=== PATIENT | male | born 1955 | race Caucasian/White ===

== ENCOUNTER 2017-03-16 03:45 | Inpatient (IN) | payer BC, MEDICARE ==
[~2017-03-16] VITALS: Ht 177.8 cm; Wt 119.8 kg
[2017-03-16] VITALS (8 sets, daily range): BP systolic 145–189; BP diastolic 86–124
[2017-03-16] MEDS ORDERED: SERT100T5 PO (04:13)
[2017-03-16] MEDS ORDERED: HYDR25TA6 PO (04:13)
[2017-03-16] MEDS ORDERED: TRAZ50TA18 PO (04:13)
[2017-03-16] MEDS ORDERED: DOXA8TAB63 PO (04:13)
[2017-03-16] MEDS ORDERED: METO50TA82 PO (04:13)
[2017-03-16] MEDS ORDERED: IBUP-1222 PO (04:13)
[2017-03-16] MEDS ORDERED: ONDANSETRON 2MG/ML, 2ML IVPush ONE (04:30)
[2017-03-16] MEDS ORDERED: ONDANSETRON 2MG/ML, 2ML ONE (04:33)
[2017-03-16] MEDS ORDERED: MORPHINE SULFATE 4 MG/ML, 1ML ONE ×2 (04:33→05:05)
[2017-03-16] MEDS: MORPHINE SULFATE 4 MG/ML, 1ML IVPush PRN ×2 (04:37→05:08)
[2017-03-16] MEDS ORDERED: OMNIPAQUE 350 MG/ML, 100ML BOTTLE ONE (04:37)
[2017-03-16] MEDS: SODIUM CHLORIDE 0.9% 1,000 ML IV ONE ×2 (05:12→05:46)
[2017-03-16 05:17] LABS: BLOOD UREA NITROGEN 13 mg/dL (7-18)
[2017-03-16 05:20] LABS: IS PT STATUS REG ER OR PRE ER? YES
[2017-03-16] MEDS ORDERED: ONDANSETRON 2MG/ML, 2ML IVPush PRN ×2 (05:30→06:00)
[2017-03-16] MEDS ORDERED: SODIUM CHLORIDE 0.9% 1,000ML IVBOLUS ONE (05:30)
[2017-03-16] MEDS ORDERED: MORPHINE SULFATE 4 MG/ML, 1ML IVPush PRN (05:30)
[2017-03-16] MEDS ORDERED: NITROGLYCERIN 0.4 MG BOTTLE (25 TABS) SL PRN (06:00)
[2017-03-16] MEDS ORDERED: POLYETHYLENE GLYCOL 17 GM PACKET PO PRN (06:00)
[2017-03-16] MEDS ORDERED: ACETAMINOPHEN 325 MG TABLET PO PRN (06:00)
[2017-03-16] MEDS ORDERED: GUAIFENESIN/DM 200-20MG, 10ML UDC PO PRN (06:00)
[2017-03-16] MEDS ORDERED: DOCUSATE 100 MG CAPSULE PO PRN (06:00)
[2017-03-16] MEDS ORDERED: BISACODYL 10 MG SUPP PR PRN (06:00)
[2017-03-16] MEDS ORDERED: POTASSIUM CHLORIDE 20 MEQ TAB.ER.PRT PO ONE (06:00)
[2017-03-16] MEDS ORDERED: POTASSIUM CHLORIDE 20 MEQ TAB.ER.PRT ONE (06:03)
[2017-03-16] MEDS ORDERED: NICOTINE 14MG/24 HR PATCH.TD24 ONE (06:03)
[2017-03-16] MEDS: NICOTINE 14MG/24 HR PATCH.TD24 TD SCH (06:11)
[2017-03-16] MEDS ORDERED: LORazepam 2 MG/ML, 1ML ONE (07:08)
[2017-03-16] MEDS: LORazepam 2 MG/ML, 1ML IVPush PRN ×2 (07:15→14:17)
[2017-03-16] MEDS ORDERED: LIDOCAINE 1%, 20ML ONE (08:34)
[2017-03-16] MEDS ORDERED: SODIUM BICARBONATE 4.2%, 5ML ONE (08:34)
[2017-03-16] MEDS ORDERED: METOPROLOL TARTRATE 50 MG TABLET PO SCH (09:00)
[2017-03-16] MEDS: CYANOCOBALAMIN 1,000 MCG TABLET PO SCH (09:59)
[2017-03-16] MEDS: MULTIVITAMIN 1 TABLET PO SCH (09:59)
[2017-03-16] MEDS: FOLIC ACID 1 MG TABLET PO SCH (09:59)
[2017-03-16] MEDS: THIAMINE 100MG TABLET PO SCH (09:59)
[2017-03-16] MEDS: SERTRALINE 100MG TABLET PO SCH (10:00)
[2017-03-16] MEDS: HYDROCHLOROTHIAZIDE 25 MG TABLET PO SCH (10:00)
[2017-03-16 13:36] LABS: IS PT STATUS REG ER OR PRE ER? NO
[2017-03-16] MEDS ORDERED: ENALAPRILAT 1.25 MG/ML, 2ML IV PRN (14:30)
[2017-03-16] MEDS ORDERED: POTASSIUM CHLORIDE 40 MEQ in SODIUM CHLORIDE 0.9% 500 ML IV ONE (15:30)
[2017-03-16] MEDS ORDERED: MAGNESIUM SULFATE PMX 2GM/50ML 50 ML IV ONE (16:00)
[2017-03-16] MEDS: OxyconTIN ER 10 MG TAB.ER PO SCH (16:03)
[2017-03-16 17:04] LABS: PATH.CAST-FLAG NOT PRESENT; SPERM-FLAG NOT PRESENT; SRC-FLAG NOT PRESENT; XTAL-FLAG NOT PRESENT; YLC-FLAG NOT PRESENT
[2017-03-16 17:35] LABS: IS PT STATUS REG ER OR PRE ER? NO
[2017-03-16] MEDS: ALBUTEROL/IPRATROPIUM 2.5MG/0.5MG, 3 ML HHN SCH (18:00)
[2017-03-16] MEDS: DOXAZOSIN 2MG TABLET PO SCH (21:09)
[2017-03-16] MEDS: METOPROLOL TARTRATE 50 MG TABLET PO SCH (21:10)
[2017-03-16] MEDS: morphine SULFATE 10 MG/ML, 1ML IVPush PRN (21:10)
[2017-03-16] MEDS: HYDROcodone/APAP 5/325 TABLET PO PRN (23:56)
[2017-03-17 00:35] VITALS: BP 129/86
[2017-03-17] MEDS: LORazepam 2 MG/ML, 1ML IVPush PRN (02:36)
[2017-03-17] MEDS: NICOTINE 14MG/24 HR PATCH.TD24 TD SCH (05:39)
[2017-03-17] MEDS: OxyconTIN ER 10 MG TAB.ER PO SCH ×2 (05:39→15:39)
[2017-03-17 06:05] LABS: ASPARTATE AMINO TRANSFERASE 44 U/L (15-37); BLOOD UREA NITROGEN 15 mg/dL (7-18)
[2017-03-17] MEDS: morphine SULFATE 10 MG/ML, 1ML IVPush PRN ×3 (07:22→20:43)
[2017-03-17 07:45] VITALS: BP 148/88
[2017-03-17] MEDS: SERTRALINE 100MG TABLET PO SCH (09:00)
[2017-03-17] MEDS: CYANOCOBALAMIN 1,000 MCG TABLET PO SCH (09:14)
[2017-03-17] MEDS: HYDROCHLOROTHIAZIDE 25 MG TABLET PO SCH (09:14)
[2017-03-17] MEDS: THIAMINE 100MG TABLET PO SCH (09:14)
[2017-03-17] MEDS: METOPROLOL TARTRATE 50 MG TABLET PO SCH ×2 (09:14→20:45)
[2017-03-17] MEDS: FOLIC ACID 1 MG TABLET PO SCH (09:14)
[2017-03-17] MEDS: MULTIVITAMIN 1 TABLET PO SCH (09:14)
[2017-03-17] MEDS: ALBUTEROL/IPRATROPIUM 2.5MG/0.5MG, 3 ML HHN SCH ×3 (09:34→16:50)
[2017-03-17] MEDS: CEFTRIAXONE PMX 1GM/50ML 50 ML IV SCH (11:58)
[2017-03-17] MEDS: DOXYCYCLINE 100 MG in DEXTROSE 5% 250 ML IV SCH ×2 (11:58→20:59)
[2017-03-17] MEDS: HYDROcodone/APAP 5/325 TABLET PO PRN (13:26)
[2017-03-17 14:05] VITALS: BP 129/92
[2017-03-17] MEDS ORDERED: ALBUTEROL/IPRATROPIUM 2.5MG/0.5MG, 3 ML NPPB PRN (17:00)
[2017-03-17] MEDS: ALBUTEROL/IPRATROPIUM 2.5MG/0.5MG, 3 ML NPPB SCH (19:33)
[2017-03-17 19:43] VITALS: BP 149/83
[2017-03-17 20:38] VITALS: BP 151/81
[2017-03-17] MEDS: DOXAZOSIN 2MG TABLET PO SCH (20:45)
[2017-03-18] MEDS: TRAZODONE 50MG TABLET PO PRN (00:35)
[2017-03-18 01:22] VITALS: BP 117/76
[2017-03-18] MEDS: OxyconTIN ER 10 MG TAB.ER PO SCH (05:33)
[2017-03-18] MEDS: NICOTINE 14MG/24 HR PATCH.TD24 TD SCH (05:33)
[2017-03-18 05:41] LABS: BLOOD UREA NITROGEN 11 mg/dL (7-18)
[2017-03-18] MEDS: morphine SULFATE 10 MG/ML, 1ML IVPush PRN ×4 (06:36→23:12)
[2017-03-18] MEDS: ALBUTEROL/IPRATROPIUM 2.5MG/0.5MG, 3 ML NPPB SCH ×4 (06:50→18:44)
[2017-03-18 08:11] VITALS: BP 139/94
[2017-03-18] MEDS ORDERED: MAGNESIUM SULFATE PMX 2GM/50ML 50 ML IV ONE ×2 (08:30→12:00)
[2017-03-18] MEDS: THIAMINE 100MG TABLET PO SCH (10:12)
[2017-03-18] MEDS: SERTRALINE 100MG TABLET PO SCH (10:12)
[2017-03-18] MEDS: CYANOCOBALAMIN 1,000 MCG TABLET PO SCH (10:12)
[2017-03-18] MEDS: FOLIC ACID 1 MG TABLET PO SCH (10:12)
[2017-03-18] MEDS: DOXYCYCLINE 100 MG in DEXTROSE 5% 250 ML IV SCH ×2 (10:12→21:53)
[2017-03-18] MEDS: HYDROCHLOROTHIAZIDE 25 MG TABLET PO SCH (10:13)
[2017-03-18] MEDS: METOPROLOL TARTRATE 50 MG TABLET PO SCH ×2 (10:13→21:51)
[2017-03-18] MEDS: MULTIVITAMIN 1 TABLET PO SCH (10:13)
[2017-03-18] MEDS: HYDROcodone/APAP 5/325 TABLET PO PRN ×2 (10:14→21:52)
[2017-03-18] MEDS: CEFTRIAXONE PMX 1GM/50ML 50 ML IV SCH (14:20)
[2017-03-18 14:58] VITALS: BP 142/87
[2017-03-18] MEDS: OxyconTIN ER 15 MG TAB.ER PO SCH (15:48)
[2017-03-18 19:24] VITALS: BP 130/90
[2017-03-18] MEDS: DOXAZOSIN 2MG TABLET PO SCH (21:51)
[2017-03-19 03:47] VITALS: BP 134/86
[2017-03-19] MEDS: OxyconTIN ER 15 MG TAB.ER PO SCH ×2 (03:54→15:24)
[2017-03-19] MEDS: NICOTINE 14MG/24 HR PATCH.TD24 TD SCH (05:42)
[2017-03-19] MEDS: morphine SULFATE 10 MG/ML, 1ML IVPush PRN ×4 (05:42→22:43)
[2017-03-19] MEDS: HYDROCHLOROTHIAZIDE 25 MG TABLET PO SCH (07:53)
[2017-03-19] MEDS: FOLIC ACID 1 MG TABLET PO SCH (07:53)
[2017-03-19] MEDS: CYANOCOBALAMIN 1,000 MCG TABLET PO SCH (07:53)
[2017-03-19] MEDS: MAGNESIUM CHLORIDE 64 MG TABLET.DR PO SCH (07:54)
[2017-03-19] MEDS: THIAMINE 100MG TABLET PO SCH (07:54)
[2017-03-19] MEDS: METOPROLOL TARTRATE 50 MG TABLET PO SCH ×2 (07:54→19:34)
[2017-03-19] MEDS: MULTIVITAMIN 1 TABLET PO SCH (07:54)
[2017-03-19] MEDS: SERTRALINE 100MG TABLET PO SCH (07:54)
[2017-03-19] MEDS: ALBUTEROL/IPRATROPIUM 2.5MG/0.5MG, 3 ML NPPB SCH ×4 (07:55→20:50)
[2017-03-19] MEDS: HYDROcodone/APAP 5/325 TABLET PO PRN ×3 (08:05→19:34)
[2017-03-19 10:00] VITALS: BP 127/82
[2017-03-19] MEDS: DOXYCYCLINE 100 MG in DEXTROSE 5% 250 ML IV SCH ×2 (10:50→22:43)
[2017-03-19] MEDS ORDERED: MAGNESIUM SULFATE PMX 2GM/50ML 50 ML IV ONE (11:30)
[2017-03-19] MEDS: CEFTRIAXONE PMX 1GM/50ML 50 ML IV SCH (12:30)
[2017-03-19 15:03] VITALS: BP 119/78
[2017-03-19 19:21] VITALS: BP 127/78
[2017-03-19] MEDS: DOXAZOSIN 2MG TABLET PO SCH (19:34)
[2017-03-19] MEDS: TRAZODONE 50MG TABLET PO PRN (19:39)
[2017-03-20 03:16] VITALS: BP 139/87
[2017-03-20] MEDS: OxyconTIN ER 15 MG TAB.ER PO SCH (03:20)
[2017-03-20] MEDS: NICOTINE 14MG/24 HR PATCH.TD24 TD SCH (03:21)
[2017-03-20] MEDS: morphine SULFATE 10 MG/ML, 1ML IVPush PRN ×2 (05:04→11:44)
[2017-03-20 05:40] LABS: BLOOD UREA NITROGEN 9 mg/dL (7-18)
[2017-03-20] MEDS: ALBUTEROL/IPRATROPIUM 2.5MG/0.5MG, 3 ML NPPB SCH ×3 (07:40→14:55)
[2017-03-20] MEDS: HYDROCHLOROTHIAZIDE 25 MG TABLET PO SCH (08:09)
[2017-03-20] MEDS: METOPROLOL TARTRATE 50 MG TABLET PO SCH (08:10)
[2017-03-20] MEDS: MULTIVITAMIN 1 TABLET PO SCH (08:10)
[2017-03-20] MEDS: THIAMINE 100MG TABLET PO SCH (08:11)
[2017-03-20] MEDS: MAGNESIUM CHLORIDE 64 MG TABLET.DR PO SCH (08:11)
[2017-03-20] MEDS: CYANOCOBALAMIN 1,000 MCG TABLET PO SCH (08:11)
[2017-03-20] MEDS: SERTRALINE 100MG TABLET PO SCH (08:12)
[2017-03-20] MEDS: FOLIC ACID 1 MG TABLET PO SCH (08:18)
[2017-03-20] MEDS: HYDROcodone/APAP 5/325 TABLET PO PRN ×2 (08:18→13:20)
[2017-03-20 08:40] VITALS: BP 141/91
[2017-03-20] MEDS: DOXYCYCLINE 100 MG in DEXTROSE 5% 250 ML IV SCH ×2 (11:00→11:44)
[2017-03-20] MEDS ORDERED: METO50TA82 PO (11:34)
[2017-03-20] MEDS ORDERED: THIA100T6 PO (11:34)
[2017-03-20] MEDS ORDERED: MULT1TAB60 PO (11:34)
[2017-03-20] MEDS ORDERED: BISA10SU65 PR (11:34)
[2017-03-20] MEDS ORDERED: DOCU-30 PO (11:34)
[2017-03-20] MEDS ORDERED: MORP10VI10 IVPush (11:34)
[2017-03-20] MEDS ORDERED: ACET325T14 PO (11:34)
[2017-03-20] MEDS ORDERED: IPRA3AMP NPPB (11:34)
[2017-03-20] MEDS ORDERED: CEFD300C37 PO (11:34)
[2017-03-20] MEDS ORDERED: DOXY100T PO (11:34)
[2017-03-20] MEDS ORDERED: CYAN10005 PO (11:34)
[2017-03-20] MEDS ORDERED: OXYC15TA60 PO (11:34)
[2017-03-20] MEDS ORDERED: NICO1PAT4 TD (11:34)
[2017-03-20] MEDS ORDERED: FOLI-17 PO (11:34)
[2017-03-20] MEDS ORDERED: HYDR-3240 PO (11:34)
[2017-03-20] MEDS ORDERED: POLY17PO5 PO (11:34)
[2017-03-20] MEDS: CEFTRIAXONE PMX 1GM/50ML 50 ML IV SCH (12:00)
[2017-03-20 13:33] VITALS: BP 119/74
== END 2017-03-20 15:16 | DRG 280 ==
LOC: ED 04:03 → EDIP 05:12 → 5SO 08:40
PROC: 0W993ZZ Drainage of Right Pleural Cavity, Percutaneous Approach (ICD-10-PCS; principal; 2017-03-16)
DX: I21.4 Non-ST elevation (NSTEMI) myocardial infarction (principal); J18.9 Pneumonia, unspecified organism; E44.0 Moderate protein-calorie malnutrition; J90 Pleural effusion, not elsewhere classified; J98.11 Atelectasis; J44.0 Chronic obstructive pulmonary disease with (acute) lower respiratory infection; S22.43XA Multiple fractures of ribs, bilateral, initial encounter for closed fracture; E87.6 Hypokalemia; D75.89 Other specified diseases of blood and blood-forming organs; E27.9 Disorder of adrenal gland, unspecified; F10.220 Alcohol dependence with intoxication, uncomplicated; F17.210 Nicotine dependence, cigarettes, uncomplicated; F32.9 Major depressive disorder, single episode, unspecified; G62.9 Polyneuropathy, unspecified; G89.29 Other chronic pain; Z96.659 Presence of unspecified artificial knee joint; I11.9 Hypertensive heart disease without heart failure; I34.0 Nonrheumatic mitral (valve) insufficiency; I45.10 Unspecified right bundle-branch block; K82.8 Other specified diseases of gallbladder; Y90.8 Blood alcohol level of 240 mg/100 ml or more; W19.XXXA Unspecified fall, initial encounter; Z86.19 Personal history of other infectious and parasitic diseases; Z80.42 Family history of malignant neoplasm of prostate; Z86.711 Personal history of pulmonary embolism; Z91.81 History of falling; Z99.81 Dependence on supplemental oxygen; Y93.89 Activity, other specified; Y92.89 Other specified places as the place of occurrence of the external cause
CPT/HCPCS: 32555; 36415; 71010; 71020; 71275; 74177; 80048; 80053; 80061; 80307; 81001; 82040; 82945; 83615; 83735; 83880; 83986; 84100; 84157; 84484; 85025; 85610; 87040; 87070; 87075; 87077; 87086; 87186; 87205; 89051; 93005; 93306; 94640; 96361; 96374; 96375; 96376; J0696; J2405; J3480; J3490; J7060; J7620; Q9967; J2060; J2270; J3475; J7030; J7040